=== PATIENT | female | born 1985 | race Caucasian/White ===

== ENCOUNTER 2019-02-04 07:35 | Emergency (ER) | payer OTHER ==
[2019-02-04] MEDS ORDERED: NS 1,000 ML IV ONE ×2 (07:52→08:03)
[2019-02-04] MEDS ORDERED: ACETAMINOPHEN 500 MG TAB PO ONE (07:59)
[2019-02-04] MEDS ORDERED: ONDANSETRON 4 MG/2 ML VIAL IVP ONE (07:59)
--- NOTE | 2019-02-04 07:59 | EDPHY ---
H & P Stated Complaint: st/fever fainted this morning seen at yesterday rx z pack Time Seen by Provider: 02/04/19 07:48 HPI/ROS: CHIEF COMPLAINT: Sore throat, presyncope HISTORY OF PRESENT ILLNESS: The patient is a 33-year-old female whose had a sore throat for the last 3 days. She presented to an urgent care yesterday and had a strep swab done that she was told was indeterminate. She was started on azithromycin and took the 1st dose yesterday. She stated today she was surprised that her symptoms had not improved. She states that she has not been eating or drinking very well because of the pain. Today while she was getting dressed she felt lightheaded like she might faint. She did not faint. She did vomit. She has been taking Tylenol but has not taken any for the last 8 hr. She is febrile and tachycardic here triage. No respiratory distress. She denies abdominal pain. No diarrhea. Severity: Moderate Modifying factors: None REVIEW OF SYSTEMS: Constitutional: See HPI EENTM: denies: blurred vision, double vision, nose congestion Respiratory: denies: cough, shortness of breath Cardiac: denies: chest pain, irregular heart rate, lightheadedness, palpitations Gastrointestinal/Abdominal: See HPI Genitourinary: denies: dysuria, frequency, hematuria, pain Musculoskeletal: denies: joint pain, muscle pain Skin: denies: lesions, rash, jaundice, bruising Neurological: denies: headache, numbness, paresthesia, tingling, dizziness, weakness Hematologic/Lymphatic: denies: blood clots, easy bleeding, easy bruising Immunologic/allergic: denies: HIV/AIDS, transplant 10 systems reviewed and negative except as noted EXAM: GENERAL: Well-appearing, well-nourished and in no acute distress. HEAD: Atraumatic, normocephalic. EYES: Pupils equal round and reactive to light, extraocular movements intact, sclera anicteric, conjunctiva are normal. ENT: TMs normal, nares patent, oropharynx erythematous. Moist mucous membranes. NECK: Normal range of motion, supple without lymphadenopathy or JVD. LUNGS: Breath sounds clear to auscultation bilaterally and equal. No wheezes rales or rhonchi. HEART: Regular rate and rhythm without murmurs, rubs or gallops. ABDOMEN: Soft, nontender, normoactive bowel sounds. No guarding, no rebound. No masses appreciated. BACK: No CVA tenderness, no spinal tenderness, step-offs or deformities EXTREMITIES: Normal range of motion, no pitting or edema. No clubbing or cyanosis. NEUROLOGICAL: Cranial nerves II through XII grossly intact. Normal speech, normal gait. 5/5 strength, normal movement in all extremities, normal sensation , normal reflexes PSYCH: Normal mood, normal affect. SKIN: Warm, dry, normal turgor, no visible rashes or lesions. Source: Patient - Personal History LMP (Females 10-55): 15-21 Days Ago Current Tetanus Diphtheria and Acellular Pertussis (TDAP): Yes - Medical/Surgical History Hx Asthma: No Hx Chronic Respiratory Disease: No Hx Diabetes: No Hx Cardiac Disease: No Hx Renal Disease: No Hx Cirrhosis: No Hx Alcoholism: No Hx HIV/AIDS: No Hx Splenectomy or Spleen Trauma: No Other PMH: depression. hypothyroid - Social History Smoking Status: Never smoked Alcohol Use: Sober Constitutional: Initial Vital Signs Temperature (C) 38.4 C H 02/04/19 07:39 Heart Rate 144 H 02/04/19 07:39 Respiratory Rate 18 02/04/19 07:39 Blood Pressure 117/81 H 02/04/19 07:39 O2 Sat (%) 94 02/04/19 07:39 O2 Delivery Mode Room Air Allergies/Adverse Reactions: penicillin G Allergy (Verified 02/04/19 07:38) Home Medications: Medication Instructions Recorded Prozac 10 MG (*) 07/10/16 Synthroid 07/10/16 Azithromycin 02/04/19 Medical Decision Making - Diagnostics EKG Interpretation: An EKG obtained and was read and documented in trace view. Please see trace view for full reading and report. Sinus tachycardia, no acute ischemic changes or arrhythmia ED Course/Re-evaluation: 9:15 p.m. Patient is feeling much better. Heart rate is improved significantly with IV fluids and fever control. We discussed pain control. She would like a dose of Decadron. She will continue taking azithromycin. Lab work is reassuring. Cultures will be sent. 10:00 a.m. patient is feeling much better. Vital signs have improved. Still slightly febrile. Will treat with ibuprofen as well. Otherwise she is ready to go home and declines further workup or treatment. Differential Diagnosis: Partial list of the Differential diagnosis considered include but were not limited to; strep throat, viral pharyngitis, abscess, phlegmon, mononucleosis, influenza, dehydration, fever and although unlikely based on the history and physical exam, I also considered gastroenteritis, meningitis, sepsis. I discussed these differential diagnoses and the plan with the patient as well as the usual and expected course. The patient understands that the diagnosis is provisional and that in medicine we are not always correct and that further workup is often warranted. Usual and customary warnings were given. All of the patient's questions were answered. The patient was instructed to return to the emergency department should the symptoms at all worsen or return, otherwise to followup with the physician as we discussed. - Data Points Laboratory Results: Laboratory Results 02/04/19 07:55 02/04/19 07:55 02/04/19 02/04/19 02/04/19 Unknown 07:55 07:55 WBC 13.36 10^3/uL H 10^3/uL (3.80-9.50) RBC 5.11 10^6/uL 10^6/uL (4.18-5.33) Hgb 14.0 g/dL g/dL (12.6-16.3) Hct 43.8 % % (38.0-47.0) MCV 85.7 fL fL (81.5-99.8) MCH 27.4 pg L pg (27.9-34.1) MCHC 32.0 g/dL L g/dL (32.4-36.7) RDW 13.2 % % (11.5-15.2) Plt Count 251 10^3/uL 10^3/uL (150-400) MPV 10.4 fL fL (8.7-11.7) Neut % (Auto) 84.5 % H % (39.3-74.2) Lymph % (Auto) 8.2 % L % (15.0-45.0) Sully % (Auto) 6.7 % % (4.5-13.0) Eos % (Auto) 0.1 % L % (0.6-7.6) Baso % (Auto) 0.1 % L % (0.3-1.7) Nucleat RBC Rel Count 0.0 % % (0.0-0.2) Absolute Neuts (auto) 11.29 10^3/uL H 10^3/uL (1.70-6.50) Absolute Lymphs (auto) 1.10 10^3/uL 10^3/uL (1.00-3.00) Absolute Monos (auto) 0.89 10^3/uL H 10^3/uL (0.30-0.80) Absolute Eos (auto) 0.01 10^3/uL L 10^3/uL (0.03-0.40) Absolute Basos (auto) 0.02 10^3/uL 10^3/uL (0.02-0.10) Absolute Nucleated RBC 0.00 10^3/uL 10^3/uL (0-0.01) Immature Gran % 0.4 % % (0.0-1.1) Immature Gran # 0.05 10^3/uL 10^3/uL (0.00-0.10) Sodium Potassium Chloride Carbon Dioxide Anion Gap BUN Creatinine Estimated GFR Glucose Calcium Beta HCG, Quant Nasal Influenza A PCR Nasal Influenza B PCR Monoscreen NEGATIVE (NEGATIVE) Group A Strep Screen Group A Strep DNA Pending 02/04/19 02/04/19 07:55 07:54 WBC RBC Hgb Hct MCV MCH MCHC RDW Plt Count MPV Neut % (Auto) Lymph % (Auto) Sully % (Auto) Eos % (Auto) Baso % (Auto) Nucleat RBC Rel Count Absolute Neuts (auto) Absolute Lymphs (auto) Absolute Monos (auto) Absolute Eos (auto) Absolute Basos (auto) Absolute Nucleated RBC Immature Gran % Immature Gran # Sodium 134 mEq/L L mEq/L (135-145) Potassium 3.7 mEq/L mEq/L (3.5-5.2) Chloride 101 mEq/L mEq/L (97-110) Carbon Dioxide 21 mEq/l L mEq/l (22-31) Anion Gap 12 mEq/L mEq/L (6-14) BUN 8 mg/dL mg/dL (7-23) Creatinine 0.6 mg/dL mg/dL (0.6-1.0) Estimated GFR > 60 Glucose 118 mg/dL H mg/dL (70-100) Calcium 9.1 mg/dL mg/dL (8.5-10.4) Beta HCG, Quant < 2.39 mIU/mL mIU/mL (0.00-4.83) Nasal Influenza A PCR NEGATIVE FOR FLU A (NEGATIVE) Nasal Influenza B PCR NEGATIVE FOR FLU B (NEGATIVE) Monoscreen Group A Strep Screen NEGATIVE (NEGATIVE) Group A Strep DNA Medications Given: Discontinued Medications Acetaminophen (Tylenol) 1,000 mg PO EDNOW ONE Stop: 02/04/19 08:00 Last Admin: 02/04/19 08:13 Dose: 1,000 mg Dexamethasone (Decadron) 10 mg PO EDNOW ONE Stop: 02/04/19 09:14 Last Admin: 02/04/19 09:41 Dose: 10 mg Sodium Chloride (Ns) 1,000 mls @ 0 mls/hr IV ONCE ONE; Wide Open PRN Reason: Protocol Stop: 02/04/19 07:53 Last Admin: 02/04/19 07:52 Dose: 1,000 mls Sodium Chloride (Ns) 1,000 mls @ 0 mls/hr IV EDNOW ONE; Wide Open PRN Reason: Protocol Stop: 02/04/19 08:04 Last Admin: 02/04/19 08:15 Dose: 1,000 mls Ibuprofen (Motrin) 800 mg PO EDNOW ONE Stop: 02/04/19 09:46 Last Admin: 02/04/19 10:01 Dose: 800 mg Ondansetron HCl (Zofran) 4 mg IVP EDNOW ONE Stop: 02/04/19 08:00 Last Admin: 02/04/19 08:14 Dose: 4 mg Departure - Departure Disposition: Home, Routine, Self-Care Clinical Impression: Pharyngitis Qualifiers: Pharyngitis/tonsillitis etiology: unspecified etiology Qualified Code(s): J02.9 - Acute pharyngitis, unspecified Condition: Fair Instructions: Pharyngitis (ED) Additional Instructions: You may use 600 mg ibuprofen every 8 hours as needed for pain/ fever You may use 650 mg of tylenol every 6-8 hours for pain/fever Referrals: NONE *PRIMARY CARE P,. [Primary Care Provider] - As per Instructions Alicia Sam MD [Medical Doctor] - 2-3 days, if not improved
[2019-02-04 08:06] LABS: PLATELET COUNT 251 10^3/uL (150-400)
--- NOTE | 2019-02-04 08:54 | CPEKG ---
Test Reason : OPEN Blood Pressure : / mmHG Vent. Rate : 117 BPM Atrial Rate : 117 BPM P-R Int : 113 ms QRS Dur : 085 ms QT Int : 328 ms P-R-T Axes : 062 070 -73 degrees QTc Int : 458 ms Sinus tachycardia Confirmed by Awa Barroso ([id number]) on 02/04/2019 8:54:39 AM Referred By: AWA BARROSO Confirmed By:Awa Barroso
[2019-02-04] MEDS ORDERED: DEXAMETHASONE 4 MG TAB PO ONE (09:13)
[2019-02-04] MEDS ORDERED: IBUPROFEN 800 MG TAB PO ONE (09:45)
[2019-02-04 10:14] VITALS: BP 100/69
== END 2019-02-04 10:13 | disposition home or self-care (01) ==
DX: J02.9 Acute pharyngitis, unspecified (principal)
CPT/HCPCS: 96374; J2405